=== PATIENT | female | born 1960 | race African-American/Black ===

== ENCOUNTER 2023-11-20 17:41 | Emergency (ER) | payer OTHER ==
[2023-11-20 17:55] VITALS: BP 134/83; PULSE 80; RESP 16; TEMP 98.4; BMI 35.2
[2023-11-20] MEDS ORDERED: KETOROLAC TROMETHAMINE 30 MG/1 ML VIAL ONE (18:15)
[2023-11-20] MEDS: KETOROLAC TROMETHAMINE 30 MG/1 ML VIAL IM ONE (18:20)
[2023-11-20] MEDS: KETOROLAC TROMETHAMINE 60 MG/2 ML VIAL IM ONE (18:26)
== END 2023-11-20 18:30 | disposition home or self-care (01) ==
LOC: FER 17:41
PROC: 3E023GC Introduction of Other Therapeutic Substance into Muscle, Percutaneous Approach (ICD-10-PCS; principal; 2023-11-20)
DX: G56.02 Carpal tunnel syndrome, left upper limb (principal); M79.642 Pain in left hand
CPT/HCPCS: 99284-25